=== PATIENT | female | born 1955 | race Two or more races ===

== ENCOUNTER 2021-06-02 23:28 | Emergency (ER) | payer SELFPAY ==
[~2021-06-02] VITALS: Ht 154.9 cm; Wt 81.6 kg
[2021-06-03 00:27] LABS: Basophils # (auto) 0.1 10 ^3/uL (0-0.2); Basophils % (auto) 0.9 % (0.0-2.0); Eosinophils # (auto) 0.2 10 ^3/uL (0-0.8); Eosinophils % (auto) 2.4 % (0.0-7.0); Hematocrit 38.4 % (36.0-46.0); Hemoglobin 12.9 g/dL (12.2-16.2); Lymphocytes # (auto) 2.5 10 ^3/uL (0.4-5.4); Lymphocytes % (auto) 39.3 % (10.0-50.0); Mean Corpuscular Hemoglobin 28.8 pg (28.0-32.0); Mean Corpuscular Hgb Conc. 33.6 g/dL (32.0-36.0); Mean Corpuscular Volume 85.8 fL (80.0-100.0); Monocytes # (auto) 0.5 10 ^3/uL (0-1.3); Monocytes % (auto) 8.3 % (0.0-12.0); Neutrophils # (auto) 3.1 10 ^3/uL (1.6-8.6); Neutrophils % (auto) 49.1 % (37.0-80.0); Nucleated Red Blood Cells % 0.1 %; Red Blood Cells 4.48 10^6/uL (4.0-5.20); Red Cell Distribution Width 14.4 % (11.8-14.3); White Blood Cell 6.4 10^3/uL (4.4-10.8)
[2021-06-03 00:43] LABS: Calcium 8.6 mg/dL (8.5-10.1); Potassium 3.7 mmol/L (3.5-5.1)
[2021-06-03 00:47] LABS: Albumin 3.8 g/dL (3.4-5.0); BUN/Creatinine Ratio 19.7
[2021-06-03 00:49] LABS: Bilirubin, Total 0.2 mg/dL (0.2-1.0); Total Protein 7.7 g/dL (6.4-8.2)
[2021-06-03] MEDS ORDERED: IOHEXOL 300 MG/ML 100ML BOTTLE IJ ONE (02:57)
[2021-06-03 09:55] LABS: Urine Bacteria NONE SEEN /hpf (None Seen); Urine Blood 1+ /uL (Negative); Urine Specific Gravity 1.048 (1.001-1.035); Urine WBC 1 /hpf (0 - 5)
[2021-06-03 11:00] VITALS: BP 130/71
== END 2021-06-03 11:28 | disposition home or self-care (01) ==
LOC: ER 23:28
DX: H49.22 Sixth [abducent] nerve palsy, left eye (principal); R94.31 Abnormal electrocardiogram [ECG] [EKG]; Z90.49 Acquired absence of other specified parts of digestive tract
CPT/HCPCS: 36415; 70450; 70460; 80053; 81001; 84443; 85025; 85652; 86141; 93005; 99285; Q9967

== ENCOUNTER 2024-01-19 15:29 | Emergency (ER) | payer MEDICAID ==
[~2024-01-19] VITALS: Ht 152.4 cm; Wt 76.5 kg
[2024-01-19 15:32] VITALS: BP 157/91; PULSE 69; RESP 17; TEMP 96.2; O2SAT 95
[2024-01-19] MEDS ORDERED: ACE3T PO (18:58)
== END 2024-01-19 19:43 | disposition home or self-care (01) ==
LOC: ER 15:29
DX: S39.012A Strain of muscle, fascia and tendon of lower back, initial encounter (principal); S16.1XXA Strain of muscle, fascia and tendon at neck level, initial encounter; Z90.49 Acquired absence of other specified parts of digestive tract; W18.09XA Striking against other object with subsequent fall, initial encounter; Y93.01 Activity, walking, marching and hiking; Y92.89 Other specified places as the place of occurrence of the external cause; Y99.8 Other external cause status
CPT/HCPCS: 72040; 72100

== ENCOUNTER 2025-01-31 20:03 | Emergency (ER) | payer MEDICAID ==
[~2025-01-31] VITALS: Ht 154.9 cm; Wt 75.3 kg
[~2025-01-31 20:03] MED LIST: ACE3T PO
[2025-01-31 23:35] VITALS: BP 148/92; PULSE 76; RESP 20; TEMP 97.8; O2SAT 95
[2025-01-31] MEDS ORDERED: ACET500T58 PO (23:40)
--- NOTE | 2025-01-31 23:40 | ED.PDOC ---
Anyi. trauma (HPI) HPI Comments 69 year old female presents to ER with complaints of fall injury x2 days. Patient reports that she tripped over her footing while walking 2 days ago and landed on her right side onto cement and has since been experiencing 9/10 right- sided neck pain, right shoulder pain, right lower ribcage pain and right hip pain. Denies head injury/LOC. Denies use of medications for current symptoms. Patient presents to ER ambulatory on arrival, with steady gait, in no distress. Denies headache, numbness/tingling, shortness of breath, chest pain, back pain or any further symptoms/complaints Chief Complaint: Fall Injury Time Seen by MD: 20:35 Primary Care Provider: UNKNOWN Reviewed notes: Nurses Notes, Medications, Allergies Allergies: Coded Allergies: NO KNOWN ALLERGIES (Unverified , 06/03/21) Home Meds Active Scripts Acetaminophen (Acetaminophen) 500 Mg Tab, 500 MG PO Q4HPRN, #30 TAB 0 Refills Prov:CINDY ESTRELLA 01/31/25 Acetaminophen W/ Codeine (Tylenol W/Cod #3) 1 Tab Tb, 1 TAB PO Q6HPRN, #10 TAB 0 Refills Prov:CINDY ESTRELLA 01/19/24 Information Source: Patient Mode of Arrival: Ambulatory Past Medical History PAST MEDICAL HISTORY: Denies Surgical History: Cholecystectomy 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 Family History Family History: Unknown Social History Smoker: Non-Smoker Alcohol: Denies ETOH Use Drugs: Denies Drug Use Lives In: Home Constitutional: denies: chills, diaphoresis, fatigue, fever, malaise, sweats, weakness, others EENTM: denies: blurred vision, double vision, ear bleeding, ear discharge, ear drainage, ear pain, ear ringing, eye pain, eye redness, hearing loss, mouth pain, mouth swelling, nasal discharge, nose bleeding, nose congestion, nose pain, photophobia, tearing, throat pain, throat swelling, voice changes, others Respiratory: denies: cough, hemoptysis, orthopnea, SOB at rest, shortness of breath, SOB with excertion, stridor, wheezing, others Cardiovascular: denies: chest pain, dizzy spells, diaphoresis, Dyspnea on exertion, edema, irregular heart beat, left arm pain, lightheadedness, palpitations, PND, syncope, others Gastrointestinal: denies: abdomen distended, abdominal pain, blood streaked bowels, constipated, diarrhea, dysphagia, difficulty swallowing, hematemesis, melena, nausea, poor appetite, poor fluid intake, rectal bleeding, rectal pain, vomiting, others Genitourinary: denies: abnormal vagina bleeding, burning, dyspareunia, dysuria, flank pain, frequency, hematuria, incontinence, pain, , vagina discharge, urgency, others Neurological: denies: dizziness, fainting, headache, left sided numbness, left sided weakness, numbness, paresthesia, pre-existing deficit, right sided numbness, right sided weakness, seizure, speech problems, tingling, tremors, weakness, others Musculoskeletal: reports: others (As stated in HPI) Integumetry: denies: bruises, change in color, change in hair/nails, dryness, laceration, lesions, lumps, rash, wounds, others Allergic/Immunocompromised: denies: Difficulty Healing, Frequent Infections, Hives, Itching, others Hematologic/Lymphatic: denies: anemia, blood clots, easy bleeding, easy bruising, swollen glands, others Endocrine: denies: excessive hunger, excessive sweating, excessive thirst, excessive urination, flushing, intolerance to cold, intolerance to heat, unexplained weight gain, unexplained weight loss, others Psychiatric: denies: anxiety, bipolar disorder, depression, hopeless, panic disorder, schizophrenia, sleepless, suicidal, others Physical Exam General Appearance: No Apparent Distress HEENT: Normal ENT Inspection, PERRL/EOMI, Pharynx Normal, TMs Normal Neck: Full Range of Motion, Other (TTP to right cervical paraspinals noted. No skin changes noted) Respiratory: Lungs Clear, No Accessory Muscle Use, No Respiratory Distress, Normal Breath Sounds, Other (TTP to right lower ribcage noted. No skin changes noted) Cardiovascular: No Murmur, No Gallop, Regular Rate/Rhythm Breast Exam: Deferred Gastrointestinal: Non Tender, No Pulsatile Mass, Soft Genitalia: Deferred Pelvic: Deferred Rectal: Deferred Extremities: Normal capillary refill, Normal range of motion Musculoskeletal : Extremity Location: Hip (TTP to right hip noted. No skin changes noted. No internal rotation/shortening to bilateral legs noted. Pulses intact. Steady gait appreciated), Shoulder (TTP to right proximal humerus noted. No deformity/skin changes noted. Negative Apley scratch test right shoulder. 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 Was a procedure done?: No Sedation Sedation?: No Differential Diagnosis Multiple Trauma: Closed Head Injury, Fractures, Vascular Injury Neck Injury: Spinal Cord Injury X-Ray, Labs, Meds, VS Vital Signs Date Time Temp Pulse Resp B/P (MAP) Pulse Ox O2 Delivery O2 Flow Rate FiO2 01/31/25 23:35 Room Air* 0 21 01/31/25 23:35 97.8 76 20 148/92 (110) 95 97.8 01/31/25 20:13 97.8 76 20 148/92 (110) 95 97.8 PATIENT: EVONNE RIVERS ACCT: [id number] UNIT: [id number] : 1955 LOC: ER ROOM / BED: / AGE / SEX: 69 / F ADM STATUS: REG ER SERVICE [id number] ORDERING PHYSICIAN: CINDY ESTRELLA PROCEDURE(s): CS2 - CERVICAL WITHOUT CONTRAST REASON: neck pain ORDER NUMBER(s): [id number], ACCESSION NUMBER(s): [id number] EXAM: CT CERVICAL WITHOUT CONTRAST HISTORY: neck pain COMPARISON: None CTDIvol 23.38 mGy, DLP 567.32 mGy*cm. TECHNIQUE: Multiple axial CT images of the spine were obtained using bone algorithm. Axial and coronal reformatting was done. Bone and soft tissue windows were reviewed. FINDINGS: No CT evidence of definite acute fracture, spinal dislocation, or significant appearing acute subluxation is seen. The visualized paraspinal soft tissues are grossly unremarkable. Moderate degenerative changes of the cervical spine include moderate to severe disc height loss at the C6-C7 level with adjacent endplate sclerosis and associated anterior osteophytosis at levels C4-C5 through C6-C7. IMPRESSION: 1. No definite CT evidence of acute fracture or dislocation of the bony cervical spine. 2. Degenerative change of the cervical spine. ATED BY: EDGAR GARRIDO MD DICTATED DATE/TIME: 02/01/2524 SIGNED BY: EDGAR GARRIDO MD SIGNED DATE/TIME: 02/01/2524 CC: PATIENT: EVONNE RIVERS ACCT: [id number] UNIT: [id number] : 1955 LOC: ER ROOM / BED: / AGE / SEX: 69 / F ADM STATUS: REG ER SERVICE 31 ORDERING PHYSICIAN: CINDY ESTRELLA PROCEDURE(s): RSHD2 - R SHOULDER 2+ VIEW XRAY REASON: right shoulder pain ORDER NUMBER(s): [id number], ACCESSION NUMBER(s): [id number] CLINICAL INDICATION: right shoulder pain TECHNIQUE: XY R SHOULDER 2+ VIEW XRAY Comparison: None FINDINGS/IMPRESSION: : The humeral head is moderately high riding and there is moderate glenohumeral joint space narrowing and marginal osteophytosis. 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 There is no evidence of acute fracture or dislocation. Soft tissues are unremarkable. The visualized portions of the lungs are clear. ATED BY: EDGAR GARRIDO MD DICTATED DATE/TIME: 02/01/2520 SIGNED BY: EDGAR GARRIDO MD SIGNED DATE/TIME: 02/01/2520 CC: PATIENT: EVONNE RIVERS ACCT: [id number] UNIT: [id number] : 1955 LOC: ER ROOM / BED: / AGE / SEX: 69 / F ADM STATUS: REG ER SERVICE 31 ORDERING PHYSICIAN: CINDY ESTRELLA PROCEDURE(s): RRIBS - R RIB XRAY REASON: right sided rib pain ORDER NUMBER(s): [id number], ACCESSION NUMBER(s): [id number] EXAMINATION: XY R RIB XRAY INDICATION: right sided rib pain COMPARISON: None TECHNIQUE: Frontal view of the chest and 2 views of the right ribs history FINDINGS: No focal consolidation, pleural effusion or significant pneumothorax. Normal cardiomediastinal silhouette. No displaced rib fracture. IMPRESSION: 1. No acute cardiopulmonary disease. No displaced rib fracture. ATED BY: EDGAR GARRIDO MD DICTATED DATE/TIME: 02/01/2522 SIGNED BY: EDGAR GARRIDO MD SIGNED DATE/TIME: 02/01/2522 CC: PATIENT: EVONNE RIVERS ACCT: [id number] UNIT: [id number] : 1955 LOC: ER ROOM / BED: / AGE / SEX: 69 / F ADM STATUS: REG ER SERVICE 233 ORDERING PHYSICIAN: CINDY ESTRELLA PROCEDURE(s): RHIP - R HIP COMPLETE XRAY REASON: right hip pain ORDER NUMBER(s): [id number], ACCESSION NUMBER(s): [id number] XY R HIP COMPLETE XRAY, INDICATION: right hip pain TECHNICAL DATA: Frontal and frog lateral views were obtained of the right hip.] COMPARISON: None Findings/ IMPRESSION: No acute fracture or dislocation. 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 ATED BY: TORIN CASTILLO DO DICTATED DATE/TIME: 02/01/2523 SIGNED BY: TORIN CASTILLO DO SIGNED DATE/TIME: 02/01/2523 CC: CT cervical without contrast reviewed Right hip x-ray reviewed Right rib x-ray reviewed Right shoulder x-ray reviewed Patient neurovascularly intact and reported improvement in symptoms prior to discharge Advised on rest/no strenuous activity Previous chart history reviewed Advised to follow up with PCP in 1-2 days Patient verbalized understanding and agreeable with current plan of care Advised to return to ER immediately if symptoms worsen Images Reviewed?: Images reviewed and evaluated by me Time of 1ST Reevaluation: 23:32 Reevaluation 1ST: N/A Patient Education/Counseling: Diagnosis, Treatment, Prognosis, Need For Follow Up Family Education/Counseling: No Family Present Departure 1 Departure Time of Disposition: 00:32 Impression: Primary Impression: Contusion of rib on right side Qualified Codes: S20.211A - Contusion of right front wall of thorax, initial encounter Additional Impressions: Cervical strain Qualified Codes: S16.1XXA - Strain of muscle, fascia and tendon at neck level, initial encounter Contusion of hip, right Qualified Codes: S70.01XA - Contusion of right hip, initial encounter Contusion of shoulder, right Qualified Codes: S40.011A - Contusion of right shoulder, initial encounter Disposition: HOME / SELF CARE / HOMELESS Condition: Stable e-Prescriptions Acetaminophen (Acetaminophen) 500 Mg Tab 500 MG PO Q4HPRN, #30 TAB 0 Refills Prov: CINDY ESTRELLA 01/31/25 Discharged With: Self Critical Care Note Critical Care Time?: No Stability Stability form required: No Heart Score Heart Score: Heart Score Response (Comments) Value History N/A 0 EKG N/A 0 Age N/A 0 Risk Factors N/A 0 Troponin N/A 0 Total 0 CINDY ESTRELLA Jan 31, 2025 23:40
--- NOTE | 2025-02-01 00:23 | DVH ---
CLINICAL INDICATION: right shoulder pain TECHNIQUE: XY R SHOULDER 2+ VIEW XRAY Comparison: None FINDINGS/IMPRESSION: : The humeral head is moderately high riding and there is moderate glenohumeral joint space narrowing a nd marginal osteophytosis. Moderate to severe hypertrophic acromioclavicular arthropathy and joint sp manuel narrowing. There is no evidence of acute fracture or dislocation. Soft tissues are unremarkable. The visualized portions of the lungs are clear.
--- NOTE | 2025-02-01 00:25 | DVH ---
EXAMINATION: XY R RIB XRAY INDICATION: right sided rib pain COMPARISON: None TECHNIQUE: Frontal view of the chest and 2 views of the right ribs history FINDINGS: No focal consolidation, pleural effusion or significant pneumothorax. Normal cardiomediastinal silhou ette. No displaced rib fracture. IMPRESSION: 1. No acute cardiopulmonary disease. No displaced rib fracture.
--- NOTE | 2025-02-01 00:26 | DVH ---
XY R HIP COMPLETE XRAY, INDICATION: right hip pain TECHNICAL DATA: Frontal and frog lateral views were obtained of the right hip.] COMPARISON: None Findings/ IMPRESSION: No acute fracture or dislocation. 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
--- NOTE | 2025-02-01 00:27 | DVH ---
EXAM: CT CERVICAL WITHOUT CONTRAST HISTORY: neck pain COMPARISON: None CTDIvol 23.38 mGy, DLP 567.32 mGy*cm. TECHNIQUE: Multiple axial CT images of the spine were obtained using bone algorithm. Axial and coron al reformatting was done. Bone and soft tissue windows were reviewed. FINDINGS: No CT evidence of definite acute fracture, spinal dislocation, or significant appearing acute subluxa tion is seen. The visualized paraspinal soft tissues are grossly unremarkable. Moderate degenerative changes of the cervical spine include moderate to severe disc height loss at th e C6-C7 level with adjacent endplate sclerosis and associated anterior osteophytosis at levels C4-C5 through C6-C7. IMPRESSION: 1. No definite CT evidence of acute fracture or dislocation of the bony cervical spine. 2. Degenerative change of the cervical spine.
== END 2025-02-01 00:35 | disposition home or self-care (01) ==
LOC: ER 20:03
DX: S20.211A Contusion of right front wall of thorax, initial encounter (principal); S16.1XXA Strain of muscle, fascia and tendon at neck level, initial encounter; S70.01XA Contusion of right hip, initial encounter; S40.011A Contusion of right shoulder, initial encounter; Z90.49 Acquired absence of other specified parts of digestive tract; W01.0XXA Fall on same level from slipping, tripping and stumbling without subsequent striking against object, initial encounter; Y93.01 Activity, walking, marching and hiking; Y92.89 Other specified places as the place of occurrence of the external cause; Y99.8 Other external cause status
CPT/HCPCS: 71101; 72125; 73030; 73502